=== PATIENT | female | born 1990 | race Caucasian/White ===

== ENCOUNTER 2021-03-24 16:34 | Emergency (ER) | payer OTHER ==
[~2021-03-24 16:34] MED LIST: BACTRIM DS TAB1 EACH PO; FLEXERIL 10 MG10 MG PO; IBUPROFEN600 MG PO; KEFLEX500 MG PO
== END 2021-03-24 18:19 | disposition home or self-care (01) ==
LOC: ER1 16:34
DX: R51.9 Headache, unspecified (principal); R05 Cough; R09.81 Nasal congestion
CPT/HCPCS: 71045; 96372; 99284; J1885